=== PATIENT | male | born 1965 | race African-American/Black ===

== ENCOUNTER 2017-10-10 16:54 | Emergency (ER) | payer MEDICAID, OTHER ==
[~2017-10-10] VITALS: Ht 182.9 cm; Wt 65.1 kg
[~2017-10-10 16:54] MED LIST: FAMO10TA31 PO; HYDR-3240 PO; NORCO PO; QUET25TA5 PO
[2017-10-10 17:02] VITALS: BP 115/77
== END 2017-10-10 17:35 | disposition home or self-care (01) ==
LOC: ED 17:15
DX: K08.89 Other specified disorders of teeth and supporting structures (principal)
CPT/HCPCS: 99283

== ENCOUNTER 2017-10-29 08:24 | Emergency (ER) | payer MEDICAID ==
[~2017-10-29] VITALS: Ht 182.9 cm; Wt 66.7 kg
[2017-10-29 08:25] VITALS: BP 136/93
== END 2017-10-29 10:21 | disposition home or self-care (01) ==
LOC: ED 10:19
DX: K02.9 Dental caries, unspecified (principal); J45.909 Unspecified asthma, uncomplicated; M10.9 Gout, unspecified; Z79.1 Long term (current) use of non-steroidal anti-inflammatories (NSAID); F17.210 Nicotine dependence, cigarettes, uncomplicated; F20.9 Schizophrenia, unspecified; F41.9 Anxiety disorder, unspecified
CPT/HCPCS: 99283

== ENCOUNTER 2018-03-22 05:04 | Emergency (ER) | payer MEDICAID ==
[~2018-03-22] VITALS: Ht 182.9 cm; Wt 67.2 kg
[2018-03-22 05:06] VITALS: BP 114/77
[2018-03-22] MEDS ORDERED: OXYcodone/APAP 5/325MG TABLET ONE (05:25)
[2018-03-22] MEDS ORDERED: OXYcodone/APAP 5/325MG TABLET PO ONE (05:30)
== END 2018-03-22 05:46 | disposition home or self-care (01) ==
LOC: ED 05:46
DX: K02.9 Dental caries, unspecified (principal); F41.1 Generalized anxiety disorder; F20.9 Schizophrenia, unspecified; R51 Headache; G89.29 Other chronic pain
CPT/HCPCS: 99283

== ENCOUNTER 2018-03-24 05:30 | Emergency (ER) | payer MEDICAID ==
[~2018-03-24] VITALS: Ht 182.9 cm; Wt 66.6 kg
[2018-03-24 05:34] VITALS: BP 144/89
[2018-03-24] MEDS ORDERED: HYDROcodone/APAP 5/325 TABLET ONE (05:53)
[2018-03-24] MEDS ORDERED: HYDROcodone/APAP 5/325 TABLET PO ONE (06:00)
== END 2018-03-24 06:10 | disposition home or self-care (01) ==
LOC: ED 06:04
DX: K02.9 Dental caries, unspecified (principal); F20.9 Schizophrenia, unspecified; F17.200 Nicotine dependence, unspecified, uncomplicated
CPT/HCPCS: 99283

== ENCOUNTER 2018-05-13 12:17 | Emergency (ER) | payer SELFPAY ==
[~2018-05-13] VITALS: Ht 182.9 cm; Wt 66.0 kg
[2018-05-13 13:55] LABS: ALBUMIN 3.3 g/dL (3.4-5.0); ANION GAP 7 mmol/L (5-15); CALCIUM 8.6 mg/dL (8.5-10.1); CHLORIDE 104 mmol/L (98-107)
[2018-05-13 13:59] LABS: ALANINE AMINOTRANSFERASE 31 U/L (12-78); ALKALINE PHOSPHATASE 50 U/L (45-117); BASOPHILS # (AUTO) 0.04 x10^3/uL (0-0.1); BASOPHILS % (AUTO) 1 % (0-1); BILIRUBIN,TOTAL 0.4 mg/dL (0.2-1.0); EOSINOPHILS # (AUTO) 0.12 x10^3/uL (0-0.4); EOSINOPHILS % (AUTO) 2 % (1-7); LYMPHOCYTES # (AUTO) 2.12 x10^3/uL (1-3.4); LYMPHOCYTES % (AUTO) 39 % (22-44); MD NO; MEAN CORPUSCULAR HEMOGLOBIN 30.3 pg (27.5-34.5); MEAN CORPUSCULAR HGB CONC 33.6 g/dL (33.2-36.2); MEAN CORPUSCULAR VOLUME 90.3 fL (81-97); MEAN PLATELET VOLUME 7.4 fL (7.4-10.4); MONOCYTES # (AUTO) 0.53 x10^3/uL (0.2-0.8); MONOCYTES % (AUTO) 10 % (2-9); NEUTROPHILS # (AUTO) 2.68 x10^3/uL (1.8-6.8); NEUTROPHILS % (AUTO) 49 % (42-75); PLATELET COUNT 495 x10^3/uL (130-400); RED BLOOD COUNT 5.11 x10^6/uL (4.38-5.82); RED CELL DISTRIBUTION WIDTH 13.8 % (9.4-14.8); TOTAL PROTEIN 7.9 g/dL (6.4-8.2)
[2018-05-13 15:15] LABS: CULTURE INDICATED? NO; MICROSCOPIC NOT IND
[2018-05-13 15:30] VITALS: BP 111/71
== END 2018-05-13 15:32 | disposition home or self-care (01) ==
LOC: ED 15:30
DX: K40.90 Unilateral inguinal hernia, without obstruction or gangrene, not specified as recurrent (principal); F17.200 Nicotine dependence, unspecified, uncomplicated
CPT/HCPCS: 36415; 76700; 76857; 80053; 81003; 83690; 85025; 99284